=== PATIENT | male | born 1955 | race Caucasian/White ===

== ENCOUNTER 2018-10-28 16:06 | Emergency (ER) | payer MEDICARE, MEDICAID ==
[~2018-10-28] VITALS: Ht 182.9 cm; Wt 109.0 kg
[2018-10-28] MEDS ORDERED: MORPHINE SULFATE 4 MG/ML CPJ (NOT FOR IM USE) IV STA (16:34)
[2018-10-28] MEDS ORDERED: SODIUM CHLORIDE 0.9% 1,000 ML IV ONE (16:34)
[2018-10-28] MEDS ORDERED: ONDANSETRON HCL 4MG/2ML INJ IV STA (16:34)
[2018-10-28] MEDS ORDERED: LEVETIRACETAM 500MG PREMIX 100 ML IV ONE (16:45)
[2018-10-28 16:51] LABS: BASOPHILS % 0.3 % (0.0-2.0); EOSINOPHILS % 0.8 % (0.0-5.0); HEMATOCRIT. 43.2 % (42.0-52.0); HEMOGLOBIN. 14.7 g/dL (14.0-18.0); LYMPHOCYTES % 26.3 % (20.0-50.0); MEAN CORPUSCULAR HEMOGLOBIN 28.4 pg (28.0-32.0); MEAN CORPUSCULAR VOLUME 83.5 fL (80.0-94.0); MEAN PLATELET VOLUME 6.4 fl (7.4-10.4); NEUTROPHILS % 63.6 % (40.0-76.0); PLATELET 161 x1000/uL (130-400); RED BLOOD CELL COUNT 5.18 mill/uL (4.7-6.1); RED CELL DISTRIBUTION WIDTH 14.5 % (11.6-14.6)
[2018-10-28 17:03] LABS: CHLORIDE 110 mEq/L (98-107)
[2018-10-28 17:07] LABS: ETHANOL BLOOD < 10 mg/dL
[2018-10-28 17:11] LABS: CREATINE KINASE 107 IU/L (39-308)
[2018-10-28 17:12] LABS: CARBAMAZEPINE 3.1 ug/mL (4-12)
[2018-10-28 17:16] LABS: PHENOBARBITAL < 2.1 ug/mL (15.0-40.0)
[2018-10-28 17:57] LABS: CLARITY URINE CLEAR (CLEAR); COLOR URINE YELLOW (YELLOW); KETONES URINE TRACE (NEGATIVE); LEUKOCYTE ESTERASE URINE NEGATIVE (NEGATIVE); NITRITE URINE NEGATIVE (NEGATIVE); OCCULT BLOOD URINE NEGATIVE (NEGATIVE); PH URINE 5.5 (4.5-8.0); PROTEIN URINE 3+ (NEGATIVE); SPECIFIC GRAVITY URINE 1.026 (1.005-1.030)
[2018-10-28] MEDS ORDERED: CARBAMAZEPINE 200MG TABLET PO ONE (18:00)
[2018-10-28 18:17] LABS: *AMPHETAMINES SCREEN URINE NEGATIVE (NEGATIVE); CANNABINOID URINE SCREEN NEGATIVE (NEGATIVE); METHADONE URINE SCREEN NEGATIVE (NEGATIVE); OPIATES URINE SCREEN NEGATIVE (NEGATIVE); PHENCYCLIDINE URINE SCREEN NEGATIVE (NEGATIVE)
[2018-10-28 18:18] LABS: *BARBITURATES SCREEN URINE NEGATIVE (NEGATIVE); *BENZODIAZEPINES SCREEN URINE NEGATIVE (NEGATIVE); *COCAINE SCREEN URINE NEGATIVE (NEGATIVE)
[2018-10-28 20:09] VITALS: BP 132/74
== END 2018-10-28 20:14 | disposition home or self-care (01) ==
LOC: ER 16:06
DX: S20.219A Contusion of unspecified front wall of thorax, initial encounter (principal); G40.909 Epilepsy, unspecified, not intractable, without status epilepticus; R51 Headache; E86.0 Dehydration; E11.9 Type 2 diabetes mellitus without complications; I10 Essential (primary) hypertension; X58.XXXA Exposure to other specified factors, initial encounter; Y93.89 Activity, other specified; Y92.89 Other specified places as the place of occurrence of the external cause; Y99.8 Other external cause status
CPT/HCPCS: 36415; 70450; 71045; 80053; 80156; 80165; 80184; 80185; 80305; 80320; 81003; 82140; 82550; 82962; 84443; 85025; 93005; 96365; 96375; 99284; J1953; J2270; J2405; J7030; G0480

== ENCOUNTER 2020-01-04 09:51 | Inpatient (IN) | payer MEDICARE, MEDICAID ==
[~2020-01-04] VITALS: Ht 175.3 cm; Wt 87.1 kg
[2020-01-04 10:35] LABS: BASOPHILS % 0.1 % (0.0-2.0); EOSINOPHILS % 1.3 % (0.0-5.0); HEMATOCRIT. 38.5 % (42.0-52.0); HEMOGLOBIN. 13.1 g/dL (14.0-18.0); LYMPHOCYTES % 30.1 % (20.0-50.0); MEAN CORPUSCULAR HEMOGLOBIN 28.6 pg (28.0-32.0); MEAN CORPUSCULAR VOLUME 83.7 fL (80.0-94.0); MEAN PLATELET VOLUME 6.4 fl (7.4-10.4); MONOCYTES % 12.1 % (2.0-8.0); NEUTROPHILS % 56.4 % (40.0-76.0); PLATELET 159 x1000/uL (130-400)
[2020-01-04 10:37] LABS: CHLORIDE 104 mEq/L (98-107); PROTHROMBIN TIME 10.9 sec (9.6-11.0)
[2020-01-04 10:41] LABS: ETHANOL BLOOD < 10 mg/dL
[2020-01-04] MEDS ORDERED: AZITHROMYCIN 500 MG in DEXT 5% WATER 250 ML IV SCH (12:45)
[2020-01-04] MEDS ORDERED: CEFTRIAXONE 1 G PREMIX 50 ML IV ONE (12:45)
[2020-01-04] MEDS ORDERED: ONDANSETRON HCL 4MG/2ML INJ IV PRN (18:15)
[2020-01-04] MEDS ORDERED: IPRATROPIUM/ALBUTEROL 0.5-3(2.5)MG/3ML NEB NEB PRN (18:15)
[2020-01-04] MEDS ORDERED: DEXTROSE 50% WATER 50ML SYRINGE IV PRN (18:15)
[2020-01-04] MEDS ORDERED: DOCUSATE SODIUM 100MG CAPSULE PO PRN (18:15)
[2020-01-04] MEDS ORDERED: GUAIFENESIN 200MG/10ML SUGAR FREE UDC PO PRN (18:15)
[2020-01-04] MEDS ORDERED: MAGNESIUM/ALUMINUM HYDROXIDE/SIMETHICONE 30ML UDC PO PRN (18:15)
[2020-01-04] MEDS ORDERED: CLONIDINE 0.1MG TABLET PO PRN (18:15)
[2020-01-04] MEDS ORDERED: LORAZEPAM 2MG/ML CPJ IV PRN (18:15)
[2020-01-04] MEDS ORDERED: ACETAMINOPHEN 325MG TABLET PO PRN (18:15)
[2020-01-04] MEDS ORDERED: DIPHENHYDRAMINE 50MG/ML VIAL IV PRN (18:15)
[2020-01-04 18:20] VITALS: BP 145/85
[2020-01-04] MEDS: INSULIN LISPRO 100 UNITS/ML SUBCUT SCH ×2 (18:20→21:00)
[2020-01-04 18:30] VITALS: BP 149/88
[2020-01-04] MEDS ORDERED: METF-414 MT (19:08)
[2020-01-04] MEDS ORDERED: MORPHINE SULFATE 2 MG/ML CPJ (NOT FOR IM USE) IV PRN (19:09)
[2020-01-04] MEDS ORDERED: HYDROCODONE/ACETAMINOPHEN 10/325MG TABLET PO PRN (19:10)
[2020-01-04 20:00] VITALS: BP 148/74
[2020-01-04] MEDS ORDERED: LEVOFLOXACIN 500MG PREMIX 100 ML IV SCH (21:00)
[2020-01-04] MEDS ORDERED: NA PHOS,M-B/NA PHOS,DI-BA ENEMA 118ML PR PRN (21:00)
[2020-01-04] MEDS: BLOOD SUGAR DIAGNOSTIC STRIP TEST SCH (21:19)
[2020-01-04] MEDS: SODIUM CHLORIDE 0.9% INJ 3ML FLUSH IVF SCH (21:22)
[2020-01-04] MEDS: ENOXAPARIN 40MG/0.4ML SYR SUBCUT SCH (21:25)
[2020-01-04] MEDS ORDERED: PNEUMOCOCCAL 23-VAL P-SAC VAC 0.5 ML IM ONE (21:30)
[2020-01-04 21:45] LABS: CLARITY URINE CLEAR (CLEAR); COLOR URINE YELLOW (YELLOW); KETONES URINE NEGATIVE (NEGATIVE); LEUKOCYTE ESTERASE URINE 1+ (NEGATIVE); NITRITE URINE NEGATIVE (NEGATIVE); OCCULT BLOOD URINE NEGATIVE (NEGATIVE); PH URINE 7.5 (4.5-8.0); PROTEIN URINE NEGATIVE (NEGATIVE); SPECIFIC GRAVITY URINE 1.019 (1.005-1.030)
[2020-01-04 21:57] LABS: *AMPHETAMINES SCREEN URINE NEGATIVE (NEGATIVE); *BARBITURATES SCREEN URINE NEGATIVE (NEGATIVE); *BENZODIAZEPINES SCREEN URINE NEGATIVE (NEGATIVE); *COCAINE SCREEN URINE NEGATIVE (NEGATIVE); CANNABINOID URINE SCREEN NEGATIVE (NEGATIVE); METHADONE URINE SCREEN NEGATIVE (NEGATIVE)
[2020-01-04 21:58] LABS: OPIATES URINE SCREEN NEGATIVE (NEGATIVE); PHENCYCLIDINE URINE SCREEN NEGATIVE (NEGATIVE)
[2020-01-05] VITALS: BP 122/62
[2020-01-05 04:00] VITALS: BP 118/81
[2020-01-05] MEDS: SODIUM CHLORIDE 0.9% INJ 3ML FLUSH IVF SCH ×3 (05:41→21:22)
[2020-01-05] MEDS: INSULIN LISPRO 100 UNITS/ML SUBCUT SCH ×4 (05:43→20:38)
[2020-01-05] MEDS: BLOOD SUGAR DIAGNOSTIC STRIP TEST SCH ×4 (05:43→20:38)
[2020-01-05 08:00] VITALS: BP 118/73
[2020-01-05 08:43] LABS: BASOPHILS % 0.1 % (0.0-2.0); EOSINOPHILS % 1.2 % (0.0-5.0); HEMATOCRIT. 43.5 % (42.0-52.0); HEMOGLOBIN. 14.9 g/dL (14.0-18.0); LYMPHOCYTES % 25.5 % (20.0-50.0); MEAN CORPUSCULAR HEMOGLOBIN 28.3 pg (28.0-32.0); MEAN CORPUSCULAR VOLUME 82.7 fL (80.0-94.0); MEAN PLATELET VOLUME 6.6 fl (7.4-10.4); MONOCYTES % 9.4 % (2.0-8.0); NEUTROPHILS % 63.8 % (40.0-76.0); PLATELET 183 x1000/uL (130-400); RED BLOOD CELL COUNT 5.26 mill/uL (4.7-6.1)
[2020-01-05 08:49] LABS: CHLORIDE 102 mEq/L (98-107)
[2020-01-05 12:00] VITALS: BP 154/77
[2020-01-05 16:00] VITALS: BP 130/79
[2020-01-05 20:00] VITALS: BP 135/89
[2020-01-05] MEDS: ENOXAPARIN 40MG/0.4ML SYR SUBCUT SCH (20:37)
[2020-01-05] MEDS ORDERED: LEVOFLOXACIN 500MG PREMIX 100 ML IV SCH (21:00)
[2020-01-06] VITALS: BP 154/55
[2020-01-06 04:00] VITALS: BP 136/74
[2020-01-06] MEDS: SODIUM CHLORIDE 0.9% INJ 3ML FLUSH IVF SCH ×2 (05:47→16:07)
[2020-01-06] MEDS: BLOOD SUGAR DIAGNOSTIC STRIP TEST SCH ×3 (05:47→17:10)
[2020-01-06] MEDS: INSULIN LISPRO 100 UNITS/ML SUBCUT SCH ×3 (05:55→17:40)
[2020-01-06 08:00] VITALS: BP 139/79
[2020-01-06] MEDS ORDERED: BENZTROPINE MESYLATE 1MG TABLET PO SCH (09:00)
[2020-01-06 12:00] VITALS: BP 146/95
[2020-01-06 15:43] VITALS: BP 140/94
[2020-01-06 16:00] VITALS: BP 140/94
== END 2020-01-06 18:45 | DRG 194 ==
LOC: ER 09:51 → 7WST 12:54 → EDBEDREQ 12:57 → EDBEDREQTM 12:58 → ENRESERV 16:00 → 7WST 01-05 01:04 → 8WST 01-05 02:01
PROVIDERS: ADMIT Internal Medicine; ATTEND Internal Medicine
DX: J18.9 Pneumonia, unspecified organism (principal); G45.9 Transient cerebral ischemic attack, unspecified; D72.819 Decreased white blood cell count, unspecified; E11.9 Type 2 diabetes mellitus without complications; I10 Essential (primary) hypertension; J44.9 Chronic obstructive pulmonary disease, unspecified; Z96.642 Presence of left artificial hip joint; F19.10 Other psychoactive substance abuse, uncomplicated; G40.909 Epilepsy, unspecified, not intractable, without status epilepticus; Z88.0 Allergy status to penicillin; Z79.84 Long term (current) use of oral hypoglycemic drugs; Z86.19 Personal history of other infectious and parasitic diseases
CPT/HCPCS: 36415; 70551; 71045; 80053; 80305; 80320; 81003; 82140; 82962; 83605; 84443; 85025; 86850; 86900; 87426; 90732; 93005; 96365; 99291; J0456; J0696; J1650; J1956; J7060; G0480

== ENCOUNTER 2020-01-06 20:02 | Inpatient (IN) | payer MEDICARE, MEDICAID ==
[~2020-01-06] VITALS: Ht 160 cm; Wt 82.1 kg
[~2020-01-06 20:02] MED LIST: METF-414 MT
[2020-01-06] MEDS ORDERED: ONDANSETRON HCL 4MG/2ML INJ IV STA (20:26)
[2020-01-06] MEDS ORDERED: MORPHINE SULFATE 4 MG/ML CPJ (NOT FOR IM USE) IV STA (20:26)
[2020-01-06] MEDS ORDERED: SODIUM CHLORIDE 0.9% 1,000 ML IV ONE (20:26)
[2020-01-06] MEDS ORDERED: CEFAZOLIN 1000MG PREMIX 50 ML IV ONE (20:30)
[2020-01-06] MEDS ORDERED: LEVETIRACETAM 500MG PREMIX 100 ML IV ONE (20:30)
[2020-01-06] MEDS ORDERED: TETANUS, DIPHTHERIA, PERTUSSIS VAC/PF 0.5ML (>7YR OLD) IM ONE (20:30)
[2020-01-06] MEDS ORDERED: SILVER SULFADIAZINE 1% CREAM 25GM TOP ONE (21:15)
[2020-01-06] MEDS ORDERED: LORAZEPAM 2MG/ML CPJ IV ONE (21:15)
[2020-01-06 21:16] LABS: PROTHROMBIN TIME 10.9 sec (9.6-11.0)
[2020-01-06 21:36] LABS: CHLORIDE 108 mEq/L (98-107)
[2020-01-06] MEDS ORDERED: HYDROCODONE/ACETAMINOPHEN 5/325MG TABLET PO PRN (22:30)
[2020-01-06] MEDS ORDERED: LEVETIRACETAM 500 MG in SODIUM CHLORIDE 0.9% 100 ML IV SCH (22:30)
[2020-01-06] MEDS ORDERED: MAGNESIUM/ALUMINUM HYDROXIDE/SIMETHICONE 30ML UDC PO PRN (22:30)
[2020-01-06] MEDS ORDERED: ONDANSETRON HCL 4MG/2ML INJ IV PRN (22:30)
[2020-01-06] MEDS ORDERED: LORAZEPAM 2MG/ML CPJ IV PRN (22:30)
[2020-01-06] MEDS ORDERED: IPRATROPIUM/ALBUTEROL 0.5-3(2.5)MG/3ML NEB NEB PRN (22:30)
[2020-01-06] MEDS ORDERED: DOCUSATE SODIUM 100MG CAPSULE PO PRN (22:30)
[2020-01-06] MEDS ORDERED: ACETAMINOPHEN 325MG TABLET PO PRN (22:30)
[2020-01-06] MEDS ORDERED: CLONIDINE 0.1MG TABLET PO PRN (22:30)
[2020-01-06 23:57] LABS: HEMATOCRIT. 50.7 % (42.0-52.0); HEMOGLOBIN. 16.9 g/dL (14.0-18.0); MEAN CORPUSCULAR HEMOGLOBIN 28.3 pg (28.0-32.0); MEAN CORPUSCULAR VOLUME 84.9 fL (80.0-94.0); MEAN PLATELET VOLUME 6.8 fl (7.4-10.4); PLATELET 254 x1000/uL (130-400); RED BLOOD CELL COUNT 5.97 mill/uL (4.7-6.1); RED CELL DISTRIBUTION WIDTH 14.3 % (11.6-14.6)
[2020-01-06 23:59] LABS: CHLORIDE 108 mEq/L (98-107)
[2020-01-07] VITALS (21 sets, daily range): BP systolic 98–178; BP diastolic 53–117
[2020-01-07] MEDS ORDERED: DEXTROSE 50% WATER 50ML SYRINGE IV PRN (03:30)
[2020-01-07 04:32] LABS: PLATELET ESTIMATE NORMAL
[2020-01-07] MEDS ORDERED: CEFAZOLIN 1000MG PREMIX 50 ML IV SCH ×2 (06:00)
[2020-01-07 06:36] LABS: CREATINE KINASE MB FRACTION 3.4 ng/mL (0.5-3.6)
[2020-01-07] MEDS: BLOOD SUGAR DIAGNOSTIC STRIP TEST SCH ×2 (06:53→12:50)
[2020-01-07] MEDS: INSULIN LISPRO 100 UNITS/ML SUBCUT SCH ×2 (08:09→13:31)
[2020-01-07] MEDS ORDERED: HYDROMORPHONE HCL/PF 2MG/ML CPJ IV PRN ×3 (08:30→10:45)
[2020-01-07] MEDS ORDERED: HYDROMORPHONE HCL/PF 2MG/ML CPJ IV SCH (09:00)
[2020-01-07] MEDS ORDERED: LEVETIRACETAM 500MG PREMIX 100 ML IV SCH (09:00)
[2020-01-07] MEDS ORDERED: LACTATED RINGERS 2,000 ML IV ONE (09:30)
[2020-01-07] MEDS ORDERED: SODIUM CHLORIDE 0.9% 1,000 ML IV SCH ×2 (09:45→21:00)
[2020-01-07] MEDS ORDERED: LACTATED RINGERS 1,000 ML IV SCH ×2 (09:45→12:00)
[2020-01-07] MEDS: POTASSIUM CHLORIDE 20MEQ TABLET SR PO SCH ×2 (09:54→10:27)
[2020-01-07] MEDS ORDERED: LACTATED RINGERS 2,000 ML IV SCH (10:00)
[2020-01-07 10:15] LABS: CHLORIDE 111 mEq/L (98-107)
[2020-01-07] MEDS ORDERED: SILVER SULFADIAZINE 1% CREAM 25GM TOP SCH (11:00)
[2020-01-07 12:28] LABS: HEMATOCRIT. 57.8 % (42.0-52.0); HEMOGLOBIN. 19.3 g/dL (14.0-18.0); MEAN CORPUSCULAR HEMOGLOBIN 28.4 pg (28.0-32.0); MEAN CORPUSCULAR VOLUME 85.1 fL (80.0-94.0); MEAN PLATELET VOLUME 6.7 fl (7.4-10.4); PLATELET 224 x1000/uL (130-400); RED BLOOD CELL COUNT 6.79 mill/uL (4.7-6.1); RED CELL DISTRIBUTION WIDTH 14.7 % (11.6-14.6)
[2020-01-07 13:46] LABS: PLATELET ESTIMATE NORMAL
[2020-01-07] MEDS ORDERED: VANCOMYCIN 1500MG in DEXTROSE 5% WATER 250ML IV SCH (14:00)
[2020-01-07] MEDS ORDERED: PIPERACILLIN/TAZOBACTAM 3.375 G/VIAL IV SCH (14:00)
[2020-01-07 14:06] LABS: BG BASE EXCESS -6.3 mmol/L (-2.0-2.0); BG CARBOXYHEMOGLOBIN 0.3 % (0.5-1.5); BG DEOXYHEMOGLOBIN 2.9 % (0.0-5.0); BG FRACTION INSPIRED OXYGEN 28; BG HCO3 ACT 16.2 mmol/L (22.0-26.0); BG METHEMOGLOBIN 0.5 % (0.0-1.5); BG OXYGEN SATURATION 97.1 % (92.0-98.5); BG OXYHEMOGLOBIN 96.3 % (94.0-97.0); BG PCO2 27.2 mmHg (35.0-45.0); BG PH 7.393 (7.350-7.450); BG PO2 97.6 mmHg (75.0-100.0); BG SAMPLE SITE RIGHT RADIAL; BG TOTAL HEMOGLOBIN 20.4 g/dL (12.0-18.0); BG VENT MODE NASAL CANNULA
[2020-01-07] MEDS ORDERED: CEFEPIME 2,000 MG in DEXT 5% WATER 100 ML IV SCH (15:00)
[2020-01-07] MEDS ORDERED: SODIUM CHLORIDE 0.9% 1,000 ML IV ONE (15:45)
[2020-01-08] MEDS ORDERED: VANCOMYCIN 1 G PREMIX 200 ML IV SCH (09:00)
== END 2020-01-07 16:15 | disposition short-term general hospital (02) | DRG 933 ==
LOC: ER 20:02 → 5WST 22:07 → EDBEDREQ 22:10 → EDBEDREQSVC 22:12 → ENRESERV 22:19 → CVICU 01-07 10:50
PROVIDERS: ADMIT Internal Medicine; ATTEND Internal Medicine
DX: T31.21 Burns involving 20-29% of body surface with 10-19% third degree burns (principal); G92 Toxic encephalopathy; T21.39XA Burn of third degree of other site of trunk, initial encounter; T22.352A Burn of third degree of left shoulder, initial encounter; T22.30XA Burn of third degree of shoulder and upper limb, except wrist and hand, unspecified site, initial encounter; J98.11 Atelectasis; N17.9 Acute kidney failure, unspecified; R65.10 Systemic inflammatory response syndrome (SIRS) of non-infectious origin without acute organ dysfunction; G40.909 Epilepsy, unspecified, not intractable, without status epilepticus; I10 Essential (primary) hypertension; D72.810 Lymphocytopenia; D72.829 Elevated white blood cell count, unspecified; D75.1 Secondary polycythemia; E11.65 Type 2 diabetes mellitus with hyperglycemia; L89.626 Pressure-induced deep tissue damage of left heel; E86.1 Hypovolemia; E87.8 Other disorders of electrolyte and fluid balance, not elsewhere classified; F80.9 Developmental disorder of speech and language, unspecified; X11.8XXA Contact with other hot tap-water, initial encounter; Z79.84 Long term (current) use of oral hypoglycemic drugs; Y93.89 Activity, other specified; Y92.89 Other specified places as the place of occurrence of the external cause; Y99.8 Other external cause status; Z88.0 Allergy status to penicillin
CPT/HCPCS: 36415; 36600; 70551; 71045; 80048; 80053; 82375; 82550; 82553; 82805; 82962; 83036; 83735; 84443; 84484; 85025; 90715; 93005; 93970; 99291; J0690; J0692; J1170; J1815; J1953; J2060; J2270; J2405; J3370; J7030; J7060; J7120

== ENCOUNTER 2021-03-30 09:57 | Emergency (ER) | payer MEDICARE, MEDICAID ==
[~2021-03-30] VITALS: Ht 177.8 cm; Wt 105.0 kg
[~2021-03-30 09:57] MED LIST changes: +CLIN300C12 MT; -METF-414 MT
[2021-03-30] MEDS ORDERED: SODIUM CHLORIDE 0.9% 1,000 ML IV ONE (10:30)
[2021-03-30] MEDS ORDERED: KETOROLAC 30MG/ML VIAL IV ONE (11:00)
[2021-03-30 11:22] LABS: BASOPHILS % 0.1 % (0.0-2.0); EOSINOPHILS % 0.4 % (0.0-5.0); HEMATOCRIT. 39.8 % (42.0-52.0); HEMOGLOBIN. 13.1 g/dL (14.0-18.0); LYMPHOCYTES % 32.1 % (20.0-50.0); MEAN CORPUSCULAR HEMOGLOBIN 27.8 pg (28.0-32.0); MEAN CORPUSCULAR VOLUME 84.6 fL (80.0-94.0); MEAN PLATELET VOLUME 6.8 fl (7.4-10.4); MONOCYTES % 11.7 % (2.0-8.0); NEUTROPHILS % 55.7 % (40.0-76.0); PLATELET 156 x1000/uL (130-400); RED CELL DISTRIBUTION WIDTH 14.6 % (11.6-14.6)
[2021-03-30 11:31] LABS: CHLORIDE 106 mEq/L (98-107)
[2021-03-30 16:27] VITALS: BP 132/73
== END 2021-03-30 16:40 | disposition home or self-care (01) ==
LOC: ER 09:57
DX: E86.0 Dehydration (principal); R42 Dizziness and giddiness; F03.90 Unspecified dementia, unspecified severity, without behavioral disturbance, psychotic disturbance, mood disturbance, and anxiety; G40.909 Epilepsy, unspecified, not intractable, without status epilepticus; E11.9 Type 2 diabetes mellitus without complications; I10 Essential (primary) hypertension; Z88.0 Allergy status to penicillin
CPT/HCPCS: 36415; 71045; 80053; 85025; 93005; 96361; 96374; 99285; J1885; J7030

== ENCOUNTER 2021-04-18 14:10 | Emergency (ER) | payer MEDICARE, MEDICAID ==
[~2021-04-18] VITALS: Ht 170.2 cm; Wt 91.0 kg
[2021-04-18 14:13] VITALS: BP 151/86
[2021-04-18 16:40] LABS: BASOPHILS % 0.2 % (0.0-2.0); EOSINOPHILS % 0.2 % (0.0-5.0); HEMATOCRIT. 39.7 % (42.0-52.0); HEMOGLOBIN. 13.4 g/dL (14.0-18.0); LYMPHOCYTES % 23.1 % (20.0-50.0); MEAN CORPUSCULAR HEMOGLOBIN 28.3 pg (28.0-32.0); MEAN CORPUSCULAR VOLUME 83.9 fL (80.0-94.0); MEAN PLATELET VOLUME 6.4 fl (7.4-10.4); MONOCYTES % 9.7 % (2.0-8.0); NEUTROPHILS % 66.8 % (40.0-76.0); PLATELET 185 x1000/uL (130-400); RED BLOOD CELL COUNT 4.73 mill/uL (4.7-6.1); RED CELL DISTRIBUTION WIDTH 14.1 % (11.6-14.6)
[2021-04-18 16:44] LABS: CHLORIDE 108 mEq/L (98-107)
== END 2021-04-18 20:40 | disposition home or self-care (01) ==
LOC: ER 14:10
DX: R51.9 Headache, unspecified (principal); T43.215A Adverse effect of selective serotonin and norepinephrine reuptake inhibitors, initial encounter; E11.9 Type 2 diabetes mellitus without complications; I10 Essential (primary) hypertension; Z88.0 Allergy status to penicillin; Z98.890 Other specified postprocedural states; Z86.59 Personal history of other mental and behavioral disorders; Y92.9 Unspecified place or not applicable
CPT/HCPCS: 36415; 71045; 80053; 84484; 85025; 99284

== ENCOUNTER 2022-04-25 16:59 | Emergency (ER) | payer MEDICARE, MEDICAID ==
[~2022-04-25] VITALS: Ht 172.7 cm; Wt 80.0 kg
[~2022-04-25 16:59] MED LIST changes: +CLIN-194 MT; -CLIN300C12 MT
[2022-04-25 21:52] LABS: EOSINOPHILS % 0.2 % (0.0-5.0); HEMATOCRIT. 40.7 % (42.0-52.0); HEMOGLOBIN. 13.8 g/dL (14.0-18.0); MEAN CORPUSCULAR HEMOGLOBIN 29.2 pg (28.0-32.0); MEAN CORPUSCULAR VOLUME 86.1 fL (80.0-94.0); MEAN PLATELET VOLUME 6.6 fl (7.4-10.4); MONOCYTES % 9.6 % (2.0-8.0); NEUTROPHILS % 54.2 % (40.0-76.0); PLATELET 186 x1000/uL (130-400); RED BLOOD CELL COUNT 4.72 mill/uL (4.7-6.1); RED CELL DISTRIBUTION WIDTH 14.6 % (11.6-14.6)
[2022-04-25 22:09] LABS: CHLORIDE 104 mEq/L (98-107)
[2022-04-25 22:20] LABS: ETHANOL BLOOD < 10 mg/dL
[2022-04-25 23:00] VITALS: BP 133/76
== END 2022-04-25 23:00 | disposition home or self-care (01) ==
LOC: ER 16:59
DX: R42 Dizziness and giddiness (principal); E11.9 Type 2 diabetes mellitus without complications; I10 Essential (primary) hypertension; R60.0 Localized edema; F03.90 Unspecified dementia, unspecified severity, without behavioral disturbance, psychotic disturbance, mood disturbance, and anxiety; Z88.0 Allergy status to penicillin
CPT/HCPCS: 36415; 80053; 80307; 80320; 80329; 83880; 84484; 85025; 99283; G0480

== ENCOUNTER 2022-07-29 23:20 | Emergency (ER) | payer MEDICARE, MEDICAID ==
[~2022-07-29] VITALS: Ht 182.9 cm; Wt 105.0 kg
[~2022-07-29 23:20] MED LIST changes: +AZIT250T12 PO; +TOPUD MT
[2022-07-29 23:23] VITALS: BP 146/96
[2022-07-30] MEDS ORDERED: TETANUS, DIPHTHERIA, PERTUSSIS VAC/PF 0.5ML (>10YR OLD) IM ONE (00:30)
[2022-07-30] MEDS ORDERED: CHLO473M2 MT (00:31)
== END 2022-07-30 01:55 | disposition home or self-care (01) ==
LOC: ER 23:20
DX: S00.81XA Abrasion of other part of head, initial encounter (principal); W18.39XA Other fall on same level, initial encounter; Y93.89 Activity, other specified; Y92.89 Other specified places as the place of occurrence of the external cause; Y99.8 Other external cause status; F03.90 Unspecified dementia, unspecified severity, without behavioral disturbance, psychotic disturbance, mood disturbance, and anxiety; E11.9 Type 2 diabetes mellitus without complications; I10 Essential (primary) hypertension; Z88.0 Allergy status to penicillin
CPT/HCPCS: 90471; 90715; 99283

== ENCOUNTER 2022-11-05 11:10 | Emergency (ER) | payer MEDICARE, MEDICAID ==
[~2022-11-05] VITALS: Ht 175.3 cm; Wt 109.0 kg
[~2022-11-05 11:10] MED LIST changes: +CHLO473M2 MT
[2022-11-05 11:15] VITALS: TEMP 98.4; O2SAT 99
[2022-11-05 12:14] LABS: BASOPHILS % 0.3 % (0.0-2.0); EOSINOPHILS % 0.2 % (0.0-5.0); HEMATOCRIT. 36.8 % (42.0-52.0); HEMOGLOBIN. 12.8 g/dL (14.0-18.0); LYMPHOCYTES % 34.3 % (20.0-50.0); MEAN CORPUSCULAR HEMOGLOBIN 29.7 pg (28.0-32.0); MEAN CORPUSCULAR VOLUME 85.7 fL (80.0-94.0); MEAN PLATELET VOLUME 6.1 fl (7.4-10.4); NEUTROPHILS % 54.2 % (40.0-76.0); PLATELET 172 x1000/uL (130-400); RED BLOOD CELL COUNT 4.29 mill/uL (4.7-6.1); RED CELL DISTRIBUTION WIDTH 14.3 % (11.6-14.6)
[2022-11-05 12:34] LABS: CHLORIDE 110 mEq/L (98-107)
[2022-11-05 13:15] VITALS: BP 158/64; PULSE 66; RESP 12
== END 2022-11-05 13:16 | disposition home or self-care (01) ==
LOC: ER 12:10
DX: R42 Dizziness and giddiness (principal); D64.9 Anemia, unspecified; F03.90 Unspecified dementia, unspecified severity, without behavioral disturbance, psychotic disturbance, mood disturbance, and anxiety; E11.9 Type 2 diabetes mellitus without complications; I10 Essential (primary) hypertension; Z88.0 Allergy status to penicillin
CPT/HCPCS: 36415; 80053; 84484; 85025; 93005; 99284

== ENCOUNTER 2023-02-12 13:10 | Emergency (ER) | payer MEDICARE, MEDICAID ==
[~2023-02-12] VITALS: Ht 175.3 cm; Wt 95.1 kg
[2023-02-12 13:14] VITALS: BP 139/79; PULSE 70; RESP 16; TEMP 98.9; O2SAT 98
[2023-02-12 13:51] LABS: BASOPHILS % 0.1 % (0.0-2.0); EOSINOPHILS % 0.1 % (0.0-5.0); HEMATOCRIT. 37.2 % (42.0-52.0); HEMOGLOBIN. 12.8 g/dL (14.0-18.0); LYMPHOCYTES % 31.5 % (20.0-50.0); MEAN CORPUSCULAR HEMOGLOBIN 29.7 pg (28.0-32.0); MEAN CORPUSCULAR HGB CONC 34.3 g/dL (31.0-37.0); MEAN CORPUSCULAR VOLUME 86.4 fL (80.0-94.0); MEAN PLATELET VOLUME 6.2 fl (7.4-10.4); MONOCYTES % 12.2 % (2.0-8.0); NEUTROPHILS % 56.1 % (40.0-76.0); PLATELET 160 x1000/uL (130-400); RED CELL DISTRIBUTION WIDTH 13.8 % (11.6-14.6)
[2023-02-12] MEDS ORDERED: MECLIZINE 25MG TABLET PO ONE (14:00)
[2023-02-12 14:04] LABS: CHLORIDE 98 mEq/L (98-107); INDEX HEMOLYSI 1 (1-3); INDEX ICTERIC 1 (1-4); INDEX LIPEMIC 1 (1-3); POTASSIUM 3.7 mEq/L (3.5-5.1); SODIUM 134 mEq/L (136-145)
[2023-02-12 14:44] LABS: ALANINE AMINOTRANSFERASE 31 IU/L (13-61); ALBUMIN 3.8 g/dL (3.4-5.0); ASPARTATE AMINOTRANSFERASE 22 IU/L (15-37); CALCIUM 9.7 mg/dL (8.5-10.1); CARBON DIOXIDE 27 mEq/L (21-32); CREATININE 0.7 mg/dL (0.6-1.3); GLUCOSE 97 mg/dL (70-105); PROTEIN TOTAL 6.3 g/dL (6.0-8.3); UREA NITROGEN BLOOD 13 mg/dL (7-21)
[2023-02-12 14:45] LABS: TROPONIN I HIGH SENSITIVITY 7 ng/L (<78)
[2023-02-12] MEDS ORDERED: MECL-299 MT (15:18)
[2023-02-12 18:27] LABS: BILIRUBIN TOTAL 0.5 mg/dL (0.1-1.0)
== END 2023-02-12 16:05 | disposition home or self-care (01) ==
LOC: ER 13:10
DX: R42 Dizziness and giddiness (principal); I10 Essential (primary) hypertension; Z88.0 Allergy status to penicillin
CPT/HCPCS: 99285; 70450; 71045; 80053; 85025; 84484; 36415; 93005; J8597

== ENCOUNTER 2023-05-29 10:58 | Emergency (ER) | payer MEDICARE, MEDICAID ==
[~2023-05-29] VITALS: Ht 182.9 cm; Wt 136.0 kg
[~2023-05-29 10:58] MED LIST changes: +MECL-299 MT
[2023-05-29 11:08] VITALS: O2SAT 98
[2023-05-29] MEDS ORDERED: TOPUD PO (13:17)
[2023-05-29 14:07] VITALS: BP 127/72; PULSE 85; RESP 17; TEMP 98.5
== END 2023-05-29 14:45 | disposition home or self-care (01) ==
LOC: ER 10:58
DX: S20.211A Contusion of right front wall of thorax, initial encounter (principal); I10 Essential (primary) hypertension; E11.9 Type 2 diabetes mellitus without complications; Z88.0 Allergy status to penicillin; Z86.59 Personal history of other mental and behavioral disorders; W18.2XXA Fall in (into) shower or empty bathtub, initial encounter; Y93.89 Activity, other specified; Y92.89 Other specified places as the place of occurrence of the external cause; Y99.8 Other external cause status
CPT/HCPCS: 71101; 71250; 99284

== ENCOUNTER 2023-08-04 10:31 | Inpatient (IN) | payer MEDICARE, MEDICAID ==
[~2023-08-04] VITALS: Ht 165.1 cm; Wt 108.0 kg
[~2023-08-04 10:31] MED LIST changes: +TOPUD PO
[2023-08-04 11:30] LABS: BASOPHILS % 0.2 % (0.0-2.0); EOSINOPHILS % 0.1 % (0.0-5.0); HEMATOCRIT. 39.8 % (42.0-52.0); HEMOGLOBIN. 13.8 g/dL (14.0-18.0); LYMPHOCYTES % 26.5 % (20.0-50.0); MEAN CORPUSCULAR HEMOGLOBIN 29.7 pg (28.0-32.0); MEAN CORPUSCULAR HGB CONC 34.8 g/dL (31.0-37.0); MEAN CORPUSCULAR VOLUME 85.5 fL (80.0-94.0); MEAN PLATELET VOLUME 6.7 fl (7.4-10.4); MONOCYTES % 13.2 % (2.0-8.0); PLATELET 258 x1000/uL (130-400); RED BLOOD CELL COUNT 4.66 mill/uL (4.7-6.1); RED CELL DISTRIBUTION WIDTH 13.4 % (11.6-14.6)
[2023-08-04 11:49] LABS: ALANINE AMINOTRANSFERASE 34 IU/L (10-49); ALBUMIN 5.1 g/dL (3.2-4.8); ASPARTATE AMINOTRANSFERASE 36 IU/L (<34); CALCIUM 9.9 mg/dL (8.7-10.4); CARBON DIOXIDE 25 mEq/L (21-32); CHLORIDE 89 mEq/L (98-107); CREATININE 0.7 mg/dL (0.6-1.3); GLUCOSE 85 mg/dL (70-105); POTASSIUM 3.5 mEq/L (3.5-5.1); PROTEIN TOTAL 7.5 g/dL (6.0-8.3); SODIUM 123 mEq/L (136-145); UREA NITROGEN BLOOD 8 mg/dL (9-23)
[2023-08-04] MEDS ORDERED: MINERAL OIL ENEMA 133ML PR ONE (12:00)
[2023-08-04] MEDS: SODIUM CHLORIDE 0.9% 500 ML IV ONE (16:49)
[2023-08-04] MEDS ORDERED: ACETAMINOPHEN 325MG TABLET PO PRN (17:45)
[2023-08-04] MEDS ORDERED: ONDANSETRON HCL 4MG/2ML INJ IV PRN (17:45)
[2023-08-04] MEDS ORDERED: CLONIDINE 0.1MG TABLET PO PRN (17:45)
[2023-08-04] MEDS ORDERED: BISACODYL 10MG SUPP PR PRN (17:45)
[2023-08-04] MEDS ORDERED: IPRATROPIUM/ALBUTEROL 0.5-3(2.5)MG/3ML NEB HHN PRN (17:45)
[2023-08-04] MEDS ORDERED: POLYETHYLENE GLYCOL 3350 (17GM) 1 DOSE PACK PO SCH (17:45)
[2023-08-04] MEDS ORDERED: DOCUSATE SODIUM 100MG CAPSULE PO PRN (17:45)
[2023-08-04 19:50] VITALS: BP 176/103; PULSE 67; RESP 20; TEMP 98.2
[2023-08-04 20:00] VITALS: BP 146/76; PULSE 67; RESP 19; TEMP 98.4
[2023-08-04] MEDS ORDERED: METO-539 MT (20:49)
[2023-08-04] MEDS ORDERED: CARB200T6 MT (20:49)
[2023-08-04] MEDS ORDERED: ERGO1250 (20:50)
[2023-08-04] MEDS ORDERED: LOSA50TA41 MT (20:50)
[2023-08-04] MEDS ORDERED: ATOR20TA65 MT (20:50)
[2023-08-04] MEDS ORDERED: DOCU-150 MT (20:50)
[2023-08-04] MEDS ORDERED: SEMA0.258 (20:50)
[2023-08-04] MEDS ORDERED: GABA-532 PO (20:50)
[2023-08-04] MEDS ORDERED: HYDR50TA MT (20:50)
[2023-08-04] MEDS ORDERED: CHLO50TA50 MT (20:50)
[2023-08-04 21:51] LABS: CLARITY URINE CLEAR (CLEAR); COLOR URINE YELLOW (YELLOW); GLUCOSE URINE NEGATIVE (NEGATIVE); KETONES URINE 1+ (NEGATIVE); LEUKOCYTE ESTERASE URINE NEGATIVE (NEGATIVE); NITRITE URINE NEGATIVE (NEGATIVE); OCCULT BLOOD URINE NEGATIVE (NEGATIVE); PROTEIN URINE TRACE (NEGATIVE); SPECIFIC GRAVITY URINE 1.012 (1.005-1.030)
[2023-08-04 22:09] LABS: BACTERIA URINE NONE SEEN; RBC URINE NONE SEEN /hpf (0-2); SQUAMOUS EPITHELIAL CELL URINE RARE /lpf (RARE/1+); WBC URINE 0-2 /hpf (0-2)
[2023-08-04 22:20] LABS: *AMPHETAMINES SCREEN URINE NEGATIVE (NEGATIVE); *BARBITURATES SCREEN URINE NEGATIVE (NEGATIVE); *BENZODIAZEPINES SCREEN URINE NEGATIVE (NEGATIVE); *COCAINE SCREEN URINE NEGATIVE (NEGATIVE); CANNABINOID URINE SCREEN NEGATIVE (NEGATIVE); ECSTASY MDMA SCREEN URINE NEGATIVE (NEGATIVE); METHADONE URINE SCREEN Neg (NEGATIVE); OPIATES URINE SCREEN NEGATIVE (NEGATIVE); PHENCYCLIDINE URINE SCREEN NEGATIVE (NEGATIVE)
[2023-08-05] VITALS: BP 120/67; PULSE 68; RESP 19; TEMP 98.1
[2023-08-05] MEDS: ACETAMINOPHEN 325MG TABLET PO PRN (01:06)
[2023-08-05 04:00] VITALS: BP 130/71; PULSE 78; RESP 18; TEMP 98.7
[2023-08-05 06:12] LABS: CALCIUM 9.7 mg/dL (8.7-10.4); CARBON DIOXIDE 26 mEq/L (21-32); CHLORIDE 88 mEq/L (98-107); CREATININE 0.6 mg/dL (0.6-1.3); GLUCOSE 90 mg/dL (70-105); POTASSIUM 3.5 mEq/L (3.5-5.1); SODIUM 123 mEq/L (136-145); UREA NITROGEN BLOOD 9 mg/dL (9-23)
[2023-08-05 07:57] LABS: BASOPHILS % 0.4 % (0.0-2.0); EOSINOPHILS % 0.2 % (0.0-5.0); HEMATOCRIT. 37.2 % (42.0-52.0); HEMOGLOBIN. 13.3 g/dL (14.0-18.0); LYMPHOCYTES % 25.5 % (20.0-50.0); MEAN CORPUSCULAR HEMOGLOBIN 30.2 pg (28.0-32.0); MEAN CORPUSCULAR HGB CONC 35.8 g/dL (31.0-37.0); MEAN CORPUSCULAR VOLUME 84.4 fL (80.0-94.0); MONOCYTES % 12.2 % (2.0-8.0); NEUTROPHILS % 61.7 % (40.0-76.0); PLATELET 227 x1000/uL (130-400); RED BLOOD CELL COUNT 4.41 mill/uL (4.7-6.1); RED CELL DISTRIBUTION WIDTH 13.5 % (11.6-14.6); WHITE BLOOD COUNT 5.8 x1000/uL (4.5-11.0)
[2023-08-05 08:00] VITALS: BP 152/80; PULSE 74; RESP 19; TEMP 96.3
[2023-08-05 09:30] LABS: THYROID STIMULATING HORMONE 1.59 uIU/mL (0.55-4.78)
[2023-08-05] MEDS: BISACODYL 10MG SUPP PR SCH (09:48)
[2023-08-05] MEDS: POLYETHYLENE GLYCOL 3350 (17GM) 1 DOSE PACK PO SCH (09:48)
[2023-08-05 12:00] VITALS: BP 137/80; PULSE 82; RESP 18; TEMP 97.2
[2023-08-05] MEDS ORDERED: MECLIZINE 25MG TABLET PO PRN (14:30)
[2023-08-05] MEDS ORDERED: CARB200T6 PO (14:32)
[2023-08-05 16:00] VITALS: BP 159/89; PULSE 77; RESP 20; TEMP 96.4
[2023-08-05] MEDS: CARBAMAZEPINE 200MG TABLET PO SCH (16:04)
[2023-08-05] MEDS: METOPROLOL TARTRATE 50MG TABLET PO SCH (16:04)
[2023-08-05] MEDS: POTASSIUM CHLORIDE 20MEQ/PACKET PO NR (16:04)
[2023-08-05] MEDS: GABAPENTIN 300MG CAPSULE PO SCH (16:04)
[2023-08-05 20:00] VITALS: BP 144/88; PULSE 71; RESP 18; TEMP 96.3
[2023-08-05] MEDS: CHLORPROMAZINE HCL 25 MG TABLET PO SCH (21:49)
[2023-08-05] MEDS: ATORVASTATIN CALCIUM 20MG TABLET PO SCH (21:49)
[2023-08-06 04:00] VITALS: BP 130/84; PULSE 65; RESP 19; TEMP 96.5
[2023-08-06 07:23] LABS: CALCIUM 9.8 mg/dL (8.7-10.4); CARBON DIOXIDE 25 mEq/L (21-32); CHLORIDE 94 mEq/L (98-107); CREATININE 0.6 mg/dL (0.6-1.3); GLUCOSE 93 mg/dL (70-105); SODIUM 127 mEq/L (136-145); UREA NITROGEN BLOOD 10 mg/dL (9-23)
[2023-08-06 08:00] VITALS: BP 143/95; PULSE 69; RESP 17; TEMP 97.5
[2023-08-06 08:54] LABS: BASOPHILS % 0.1 % (0.0-2.0); EOSINOPHILS % 0.1 % (0.0-5.0); HEMATOCRIT. 38.2 % (42.0-52.0); HEMOGLOBIN. 13.5 g/dL (14.0-18.0); LYMPHOCYTES % 31.9 % (20.0-50.0); MEAN CORPUSCULAR HEMOGLOBIN 29.9 pg (28.0-32.0); MEAN CORPUSCULAR HGB CONC 35.4 g/dL (31.0-37.0); MEAN CORPUSCULAR VOLUME 84.6 fL (80.0-94.0); MONOCYTES % 14.2 % (2.0-8.0); NEUTROPHILS % 53.7 % (40.0-76.0); PLATELET 232 x1000/uL (130-400); RED BLOOD CELL COUNT 4.51 mill/uL (4.7-6.1); RED CELL DISTRIBUTION WIDTH 13.3 % (11.6-14.6)
[2023-08-06] MEDS: LOSARTAN 50 MG TABLET PO SCH (09:33)
[2023-08-06 12:00] VITALS: BP 105/62; PULSE 83; RESP 18; TEMP 97.6
[2023-08-06 16:00] VITALS: BP 112/69; PULSE 68; RESP 18; TEMP 98.1
[2023-08-06 20:00] VITALS: BP 94/41; PULSE 67; RESP 19; TEMP 97.1
[2023-08-07] VITALS: BP 119/62; PULSE 63; RESP 16; TEMP 98
[2023-08-07 04:00] VITALS: BP 126/64; PULSE 66; RESP 20; TEMP 97.8
[2023-08-07 07:24] LABS: BASOPHILS % 0.1 % (0.0-2.0); EOSINOPHILS % 0.2 % (0.0-5.0); HEMATOCRIT. 39.1 % (42.0-52.0); HEMOGLOBIN. 13.7 g/dL (14.0-18.0); LYMPHOCYTES % 33.6 % (20.0-50.0); MEAN CORPUSCULAR HEMOGLOBIN 30.5 pg (28.0-32.0); MEAN CORPUSCULAR HGB CONC 35.2 g/dL (31.0-37.0); MEAN CORPUSCULAR VOLUME 86.7 fL (80.0-94.0); MEAN PLATELET VOLUME 6.9 fl (7.4-10.4); MONOCYTES % 11.6 % (2.0-8.0); NEUTROPHILS % 54.5 % (40.0-76.0); PLATELET 236 x1000/uL (130-400); RED BLOOD CELL COUNT 4.51 mill/uL (4.7-6.1); RED CELL DISTRIBUTION WIDTH 13.6 % (11.6-14.6)
[2023-08-07 07:56] LABS: CALCIUM 9.4 mg/dL (8.7-10.4); CARBON DIOXIDE 25 mEq/L (21-32); CHLORIDE 95 mEq/L (98-107); CREATININE 0.7 mg/dL (0.6-1.3); GLUCOSE 92 mg/dL (70-105); PHOSPHORUS 3.4 mg/dL (2.5-4.9); POTASSIUM 4.4 mEq/L (3.5-5.1); SODIUM 128 mEq/L (136-145); UREA NITROGEN BLOOD 10 mg/dL (9-23)
[2023-08-07 08:00] VITALS: BP 128/78; PULSE 69; RESP 19; TEMP 97.9
[2023-08-07] MEDS ORDERED: POLY119P2 MT (14:45)
[2023-08-07 16:49] VITALS: BP 128/78; PULSE 69; TEMP 97.5; O2SAT 95
== END 2023-08-07 17:30 | disposition home health service (06) | DRG 392 ==
LOC: ER 10:31 → EDBEDREQ 13:52 → EDBEDREQTM 13:52 → EDBEDREQ 14:02 → UNDOADMIN 16:13 → 6EST 16:13
PROVIDERS: ADMIT Family Medicine Adult Medicine; ATTEND Family Medicine Adult Medicine
DX: K59.09 Other constipation (principal); E87.1 Hypo-osmolality and hyponatremia; D64.9 Anemia, unspecified; N28.1 Cyst of kidney, acquired; T50.2X5A Adverse effect of carbonic-anhydrase inhibitors, benzothiadiazides and other diuretics, initial encounter; N18.9 Chronic kidney disease, unspecified; M48.061 Spinal stenosis, lumbar region without neurogenic claudication; I12.9 Hypertensive chronic kidney disease with stage 1 through stage 4 chronic kidney disease, or unspecified chronic kidney disease; E87.6 Hypokalemia; E11.22 Type 2 diabetes mellitus with diabetic chronic kidney disease; R41.89 Other symptoms and signs involving cognitive functions and awareness; X58.XXXA Exposure to other specified factors, initial encounter; Z88.0 Allergy status to penicillin
CPT/HCPCS: 36415; 71045; 74176; 80048; 80053; 80061; 80305; 81003; 82533; 83735; 83930; 83935; 84100; 84295; 84443; 85025; 93005; 99285; J7040; Q0161

== ENCOUNTER 2024-04-23 08:43 | Emergency (ER) | payer MEDICARE, MEDICAID ==
[~2024-04-23] VITALS: Ht 177.8 cm; Wt 86.0 kg
[~2024-04-23 08:43] MED LIST changes: +ATOR20TA65 MT; -AZIT250T12 PO; +CARB200T6 PO; +CHLO50TA50 MT; -CLIN-194 MT; +DOCU-422 MT; +ERGO1250; +GABA-1180 PO; +LOSA50TA41 MT; +METO-539 MT; +POLY119P2 MT; +SEMA0.258; -TOPUD PO
[2024-04-23 08:46] VITALS: TEMP 98.7; O2SAT 99
[2024-04-23 09:59] LABS: BASOPHILS % 0.2 % (0.0-2.0); HEMATOCRIT. 38.5 % (42.0-52.0); LYMPHOCYTES % 9.8 % (20.0-50.0); MEAN CORPUSCULAR HEMOGLOBIN 30.2 pg (28.0-32.0); MEAN CORPUSCULAR HGB CONC 33.9 g/dL (31.0-37.0); MEAN CORPUSCULAR VOLUME 89.3 fL (80.0-94.0); MEAN PLATELET VOLUME 6.4 fl (7.4-10.4); MONOCYTES % 10.9 % (2.0-8.0); NEUTROPHILS % 79.1 % (40.0-76.0); PLATELET 147 x1000/uL (130-400); RED BLOOD CELL COUNT 4.31 mill/uL (4.7-6.1); RED CELL DISTRIBUTION WIDTH 13.1 % (11.6-14.6); WHITE BLOOD COUNT 6.9 x1000/uL (4.5-11.0)
[2024-04-23] MEDS: SODIUM CHLORIDE 0.9% 1,000 ML IV ONE (10:07)
[2024-04-23 10:09] LABS: CLARITY URINE CLEAR (CLEAR); COLOR URINE DARK YELLOW (YELLOW); GLUCOSE URINE TRACE (NEGATIVE); KETONES URINE TRACE (NEGATIVE); LEUKOCYTE ESTERASE URINE TRACE (NEGATIVE); NITRITE URINE NEGATIVE (NEGATIVE); OCCULT BLOOD URINE NEGATIVE (NEGATIVE); PROTEIN URINE 1+ (NEGATIVE); SPECIFIC GRAVITY URINE 1.022 (1.005-1.030)
[2024-04-23 10:17] LABS: CHLORIDE 99 mEq/L (98-107); POTASSIUM 4.1 mEq/L (3.5-5.1); SODIUM 136 mEq/L (136-145)
[2024-04-23 10:18] LABS: CALCIUM 10.3 mg/dL (8.7-10.4); CARBON DIOXIDE 28 mEq/L (21-32)
[2024-04-23 10:23] LABS: CREATININE 0.9 mg/dL (0.6-1.3); GLUCOSE 101 mg/dL (70-105); UREA NITROGEN BLOOD 21 mg/dL (9-23)
[2024-04-23 10:24] LABS: TROPONIN I HIGH SENSITIVITY 4 ng/L (3.0-53); WBC URINE 0-2 /hpf (0-2)
[2024-04-23 10:25] LABS: BACTERIA URINE NONE SEEN; RBC URINE NONE SEEN /hpf (0-2); SQUAMOUS EPITHELIAL CELL URINE RARE /lpf (RARE/1+)
[2024-04-23] MEDS ORDERED: ACET-2708 MT (11:36)
[2024-04-23 13:51] VITALS: BP 140/75; PULSE 91; RESP 16; O2SAT 97
== END 2024-04-23 13:53 | disposition home or self-care (01) ==
LOC: ER 08:43 → EDBEDREQ 09:34 → ER 13:53
DX: B34.9 Viral infection, unspecified (principal); E11.9 Type 2 diabetes mellitus without complications; I10 Essential (primary) hypertension; F03.90 Unspecified dementia, unspecified severity, without behavioral disturbance, psychotic disturbance, mood disturbance, and anxiety; M19.90 Unspecified osteoarthritis, unspecified site; Z79.899 Other long term (current) drug therapy; Z88.0 Allergy status to penicillin
CPT/HCPCS: 99285; 96360; 71045; 80048; 81003; 83605; 85025; 87040; 87086; 84484; 87804 ×2; 36415; 84145; 93005; J7030

== ENCOUNTER 2024-10-24 05:35 | Emergency (ER) | payer MEDICARE, MEDICAID ==
[~2024-10-24] VITALS: Ht 172.7 cm; Wt 86.0 kg
[~2024-10-24 05:35] MED LIST changes: +ACET-2708 MT
[2024-10-24 05:52] VITALS: O2SAT 97
[2024-10-24 07:57] VITALS: BP 167/72; PULSE 68; RESP 16; TEMP 36.8; O2SAT 97
== END 2024-10-24 08:00 | disposition home or self-care (01) ==
LOC: ER 05:35
DX: S09.8XXA Other specified injuries of head, initial encounter (principal); E11.9 Type 2 diabetes mellitus without complications; F03.90 Unspecified dementia, unspecified severity, without behavioral disturbance, psychotic disturbance, mood disturbance, and anxiety; I10 Essential (primary) hypertension; Z79.899 Other long term (current) drug therapy; Z88.0 Allergy status to penicillin; W01.0XXA Fall on same level from slipping, tripping and stumbling without subsequent striking against object, initial encounter; Y93.89 Activity, other specified; Y92.89 Other specified places as the place of occurrence of the external cause; Y99.8 Other external cause status
CPT/HCPCS: 99284

== ENCOUNTER 2024-11-13 19:03 | Emergency (ER) | payer MEDICARE, MEDICAID ==
[~2024-11-13] VITALS: Ht 175.3 cm; Wt 86.0 kg
[2024-11-13 19:07] VITALS: TEMP 36.8; O2SAT 98
[2024-11-13] MEDS ORDERED: HYDR453.3 TP (20:53)
[2024-11-13] MEDS: DEXAMETHASONE 10 MG/ML VIAL PO ONE (21:11)
[2024-11-13 21:20] VITALS: BP 121/79; PULSE 75; RESP 16; O2SAT 100
== END 2024-11-13 21:24 | disposition home or self-care (01) ==
LOC: ER 19:03
DX: R21 Rash and other nonspecific skin eruption (principal); E11.9 Type 2 diabetes mellitus without complications; I10 Essential (primary) hypertension; F03.90 Unspecified dementia, unspecified severity, without behavioral disturbance, psychotic disturbance, mood disturbance, and anxiety; Z88.0 Allergy status to penicillin; Z79.899 Other long term (current) drug therapy; Z86.59 Personal history of other mental and behavioral disorders
CPT/HCPCS: 99283; J1100